=== PATIENT | male | born 1960 | race Caucasian/White ===

== ENCOUNTER 2020-05-11 03:29 | Emergency (ER) | payer MEDICAID, MEDICARE ==
[~2020-05-11] VITALS: Ht 167.6 cm; Wt 63.6 kg
[~2020-05-11 03:29] MED LIST: ASPI-515 PO; ATOR40TA78 PO; CAPT12.52 PO; METO25TA91 PO; TICA90TA PO
[2020-05-11] MEDS ORDERED: SODIUM CHLORIDE FLUSH 10ML SYR IVF ONE (04:00)
--- NOTE | 2020-05-11 04:05 | NUR ---
PT BIB EMS. PT STATES RUNNING OUT OF LASIX 2 DAYS AGO, LEGS SWELLING AND HAVING SOME SOB, CHEST PAIN, DIFFICULTY SLEEPING. PT RESTLESS IN BED, YELLING AT ERP STATING "[facility] DIDNT DO ANYTHING, THEY WOULDNT EVEN LET ME PUT ON OXYGEN BECAUSE MY MONITORS SAID IM FINE, WHATEVER THAT MEANS". PT PLACED ON ALL MONITORS, EKG DONE, CXR TAKEN, IV ATTEMPT WITH LABS AT BEDSIDE
[2020-05-11 04:45] LABS: ALANINE AMINOTRANSFERASE 25 U/L (12-78); ALBUMIN 2.8 g/dL (3.4-5.0); ANION GAP 8 mmol/L (5-15); CALCIUM 8.6 mg/dL (8.5-10.1); CHLORIDE 102 mmol/L (98-107); CREATININE 1.45 mg/dL (0.7-1.3)
[2020-05-11 04:49] LABS: ALKALINE PHOSPHATASE 115 U/L (45-117); BILIRUBIN,TOTAL 3.8 mg/dL (0.2-1.0); TOTAL PROTEIN 6.4 g/dL (6.4-8.2); TROPONIN I < 0.015 ng/mL (0.000-0.045)
[2020-05-11] MEDS ORDERED: FUROSEMIDE 40 MG/4 ML IV ONE (05:00)
[2020-05-11] MEDS ORDERED: FUROSEMIDE 20 MG/2 ML ONE (05:05)
[2020-05-11 05:08] LABS: BASOPHILS % (AUTO) 2 % (0-1); EOSINOPHILS % (AUTO) 2 % (1-7); LYMPHOCYTES % (AUTO) 24 % (22-44); MEAN CORPUSCULAR HEMOGLOBIN 28.3 pg (27.5-34.5); MEAN CORPUSCULAR HGB CONC 32.5 g/dL (33.2-36.2); MONOCYTES % (AUTO) 16 % (2-9); NEUTROPHILS % (AUTO) 56 % (42-75); PLATELET COUNT 231 x10^3/uL (130-400); RED BLOOD COUNT 3.88 x10^6/uL (4.38-5.82); RED CELL DISTRIBUTION WIDTH 18.2 % (9.4-14.8)
[2020-05-11 05:18] LABS: MD NO
[2020-05-11 06:49] VITALS: BP 108/84
== END 2020-05-11 06:55 | disposition home or self-care (01) ==
LOC: ED 06:53
DX: R07.2 Precordial pain (principal); R06.00 Dyspnea, unspecified; I50.9 Heart failure, unspecified; N17.9 Acute kidney failure, unspecified; Z76.0 Encounter for issue of repeat prescription; I25.2 Old myocardial infarction; Z87.891 Personal history of nicotine dependence
CPT/HCPCS: 36415; 71045; 80053; 83880; 84484; 85025; 93005; 96374; 99285; J1940

== ENCOUNTER 2020-05-13 09:46 | Emergency (ER) | payer MEDICARE ==
[~2020-05-13] VITALS: Ht 167.6 cm; Wt 63.6 kg
[2020-05-13] MEDS ORDERED: SODIUM CHLORIDE FLUSH 10ML SYR IVF ONE (10:00)
[2020-05-13] MEDS ORDERED: FUROSEMIDE 40 MG/4 ML IVPush ONE (10:00)
[2020-05-13] MEDS ORDERED: FUROSEMIDE 20 MG/2 ML ONE (10:09)
[2020-05-13 10:34] LABS: BASOPHILS % (AUTO) 2 % (0-1); EOSINOPHILS % (AUTO) 0 % (1-7); LYMPHOCYTES % (AUTO) 19 % (22-44); MEAN CORPUSCULAR HEMOGLOBIN 27.8 pg (27.5-34.5); MEAN CORPUSCULAR HGB CONC 31.6 g/dL (33.2-36.2); MEAN PLATELET VOLUME 9.6 fL (7.4-10.4); MONOCYTES % (AUTO) 13 % (2-9); NEUTROPHILS % (AUTO) 66 % (42-75); PLATELET COUNT 273 x10^3/uL (130-400); RED BLOOD COUNT 4.44 x10^6/uL (4.38-5.82); RED CELL DISTRIBUTION WIDTH 19.1 % (9.4-14.8)
[2020-05-13 10:39] LABS: MD NO
[2020-05-13 10:42] LABS: ALANINE AMINOTRANSFERASE 32 U/L (12-78); ANION GAP 10 mmol/L (5-15); CALCIUM 8.6 mg/dL (8.5-10.1); CHLORIDE 102 mmol/L (98-107); CREATININE 1.95 mg/dL (0.7-1.3)
--- NOTE | 2020-05-13 10:43 | NUR ---
PT HAVING INCREASED URINARY OUTPUT AFTER LASIX DOSE.
[2020-05-13 10:46] LABS: ALKALINE PHOSPHATASE 145 U/L (45-117); BILIRUBIN,TOTAL 4.6 mg/dL (0.2-1.0); TROPONIN I < 0.015 ng/mL (0.000-0.045)
--- NOTE | 2020-05-13 10:46 | NUR ---
[facility] called and informed of STAT ECHO. State they will come down [place] and perform [facility].
[2020-05-13 10:52] LABS: AMPHETAMINE SCREEN, URINE Negative (Negative); BARBITURATE SCREEN, URINE Negative (Negative); BENZODIAZEPINE SCREEN, URINE Negative (Negative); CANNABINOID SCREEN, URINE Negative (Negative); COCAINE SCREEN, URINE Negative (Negative); METHADONE SCREEN, URINE Negative (Negative); OPIATE SCREEN, URINE Negative (Negative)
[2020-05-13 11:04] LABS: FREE T4 (FREE THYROXINE) 1.91 ng/dL (0.76-1.46)
[2020-05-13 14:04] VITALS: BP 102/71
== END 2020-05-13 14:26 | disposition home or self-care (01) ==
LOC: ED 09:58
DX: I50.814 Right heart failure due to left heart failure (principal); R06.00 Dyspnea, unspecified; R07.89 Other chest pain; M79.89 Other specified soft tissue disorders; I49.3 Ventricular premature depolarization; I25.2 Old myocardial infarction; I50.9 Heart failure, unspecified; E78.5 Hyperlipidemia, unspecified
CPT/HCPCS: 36415; 71045; 80053; 80307; 83880; 84439; 84443; 84484; 85025; 93005; 93306; 96374; 99285; J1940

== ENCOUNTER 2020-05-15 01:01 | Emergency (ER) | payer MEDICARE ==
[~2020-05-15] VITALS: Ht 167.6 cm; Wt 62.0 kg
[2020-05-15 01:11] VITALS: BP 100/70
[2020-05-15 01:24] LABS: ANION GAP 9 mmol/L (5-15); CALCIUM 8.5 mg/dL (8.5-10.1); CHLORIDE 101 mmol/L (98-107)
[2020-05-15 01:26] LABS: ALANINE AMINOTRANSFERASE 44 U/L (12-78); ALKALINE PHOSPHATASE 153 U/L (45-117); BASOPHILS % (AUTO) 2 % (0-1); BILIRUBIN,TOTAL 4.2 mg/dL (0.2-1.0); CREATININE 1.94 mg/dL (0.7-1.3); EOSINOPHILS % (AUTO) 1 % (1-7); LYMPHOCYTES % (AUTO) 27 % (22-44); MEAN CORPUSCULAR HEMOGLOBIN 27.9 pg (27.5-34.5); MEAN CORPUSCULAR HGB CONC 31.2 g/dL (33.2-36.2); MEAN PLATELET VOLUME 9.7 fL (7.4-10.4); MONOCYTES % (AUTO) 18 % (2-9); NEUTROPHILS % (AUTO) 53 % (42-75); PLATELET COUNT 288 x10^3/uL (130-400); RED BLOOD COUNT 4.26 x10^6/uL (4.38-5.82); RED CELL DISTRIBUTION WIDTH 19.3 % (9.4-14.8); TOTAL PROTEIN 6.9 g/dL (6.4-8.2); TROPONIN I < 0.015 ng/mL (0.000-0.045)
[2020-05-15 01:30] LABS: MD NO
--- NOTE | 2020-05-15 02:03 | NUR ---
AT BEDSIDE. AIDET PROVIDED TO PT.
== END 2020-05-15 02:25 | disposition home or self-care (01) ==
LOC: ED 02:06
DX: I12.9 Hypertensive chronic kidney disease with stage 1 through stage 4 chronic kidney disease, or unspecified chronic kidney disease (principal); I50.31 Acute diastolic (congestive) heart failure; K59.00 Constipation, unspecified; R60.0 Localized edema; I49.3 Ventricular premature depolarization; I25.2 Old myocardial infarction; E78.5 Hyperlipidemia, unspecified; Z87.891 Personal history of nicotine dependence
CPT/HCPCS: 36415; 80053; 80307; 84484; 85025; 93005; 99284

== ENCOUNTER 2020-05-23 16:29 | Emergency (ER) | payer MEDICARE ==
[~2020-05-23] VITALS: Ht 165.1 cm; Wt 68.5 kg
[2020-05-23 17:04] VITALS: BP 103/63
--- NOTE | 2020-05-23 17:06 | NUR ---
PT A&OX4, RESP EVEN & UNLABORED, SPEECH CLEAR. ABLE TO SPEAK IN LOUD VOICE, CLEARLY. SKIN WNL. PT STATES "I'M HAVING HEART FAILURE" "I TWICE IN [place] LAST WEEK AND WAS IN A COMA" "I HAVE 2 STENTS".
--- NOTE | 2020-05-23 17:10 | NUR ---
CXR AT BS
[2020-05-23 17:36] LABS: BASOPHILS % (AUTO) 2 % (0-1); EOSINOPHILS % (AUTO) 1 % (1-7); LYMPHOCYTES % (AUTO) 13 % (22-44); MEAN CORPUSCULAR HEMOGLOBIN 27.2 pg (27.5-34.5); MEAN CORPUSCULAR HGB CONC 31.9 g/dL (33.2-36.2); MEAN PLATELET VOLUME 9.7 fL (7.4-10.4); MONOCYTES % (AUTO) 11 % (2-9); NEUTROPHILS % (AUTO) 73 % (42-75); PLATELET COUNT 170 x10^3/uL (130-400); RED BLOOD COUNT 4.08 x10^6/uL (4.38-5.82); RED CELL DISTRIBUTION WIDTH 18.1 % (9.4-14.8)
[2020-05-23 17:37] LABS: MD NO
--- NOTE | 2020-05-23 17:41 | NUR ---
PT ARGUMENTATIVE. UNWILLING TO PROVIDE MEDICATION NAMES. REQUESTING OXYGEN. INFORMED PT HIS O2 SAT 100% ON ROOM AIR. PT REQUESTING LASIX. STATES HE TAKES LASIX. STATING "YOU GUYS PUT A STENT IN ME AND IT FAILED."
[2020-05-23 17:44] LABS: ALANINE AMINOTRANSFERASE 24 U/L (12-78); ALBUMIN 2.9 g/dL (3.4-5.0); ANION GAP 6 mmol/L (5-15); CALCIUM 8.1 mg/dL (8.5-10.1); CHLORIDE 100 mmol/L (98-107); CREATININE 1.38 mg/dL (0.7-1.3)
[2020-05-23 17:48] LABS: ALKALINE PHOSPHATASE 111 U/L (45-117); BILIRUBIN,TOTAL 2.7 mg/dL (0.2-1.0); TOTAL PROTEIN 6.9 g/dL (6.4-8.2); TROPONIN I < 0.015 ng/mL (0.000-0.045)
--- NOTE | 2020-05-23 18:05 | NUR ---
PT REPORT TO RC DENNISON RN. PT CARE TRANSFERRED. PT WATCHING TV
--- NOTE | 2020-05-23 18:50 | NUR ---
PT REPORT FROM CORRINA DENNISON. PT CARE TO BE RESUMED.
--- NOTE | 2020-05-23 18:52 | NUR ---
PT AMBULATORY TO & FROM [facility] W/OUT INCIDENT: GAIT STEADY.
--- NOTE | 2020-05-23 18:53 | NUR ---
ADDITIONAL BLANKETS PROVIDED, PER PT REQUEST
--- NOTE | 2020-05-23 19:27 | NUR ---
DR MERCADO AT
[2020-05-23] MEDS ORDERED: FUROSEMIDE 40 MG/4 ML IV ONE (20:00)
--- NOTE | 2020-05-23 20:12 | NUR ---
PT FULLY DRESSED, STANDING IN ROOM DOORWAY, ASKING ABOUT HIS LASIX. INFORMED PT THAT HE'S NEXT IN LINE. PT THEN RETURNED TO ROOM AND PLOPPED ONTO [facility] [facility].
[2020-05-23] MEDS ORDERED: FUROSEMIDE 40 MG/4 ML ONE (20:18)
== END 2020-05-23 20:36 | disposition home or self-care (01) ==
LOC: ED 17:30
DX: R06.00 Dyspnea, unspecified (principal); I50.9 Heart failure, unspecified; I25.2 Old myocardial infarction; E78.5 Hyperlipidemia, unspecified; R06.02 Shortness of breath
CPT/HCPCS: 36415; 71045; 80053; 83880; 84484; 85025; 93005; 99285

== ENCOUNTER 2020-06-08 07:37 | Emergency (ER) | payer MEDICARE ==
[~2020-06-08] VITALS: Ht 165.1 cm; Wt 74.0 kg
--- NOTE | 2020-06-08 07:37 | NUR ---
INITIAL PT CONTACT. BIBA C/O SYNCOPE, CHEST PAIN, TOOTH PAIN AND LEFT ARM PAIN/NUMBNESS. PT STATES "I FELL THIS AM, MUSTVE PASSED OUT AND HIT MY HEAD, I REMEBER EVERYTHING AND NOW MY TOOTH HURTS." PT UPRIGHT ON FAUSTINA, HEIKE, VSS. PT PROVIDED BLANKET. CONTINUOUS PULSE OX AND PLANT ACCOUNTANT IN PLACE. ERP AT BEDSIDE.
--- NOTE | 2020-06-08 07:49 | NUR ---
PT CONTINUALLY STATES "I REALLY DONT WANT AN IV, LAST TIME I HAD ONE THEY DIDNT EVEN USE IT, SO PLEASE WAIT ON THAT." ERP AWARE.
[2020-06-08] MEDS ORDERED: SODIUM CHLORIDE FLUSH 10ML SYR IVF ONE (08:00)
[2020-06-08] MEDS ORDERED: POTA20TA14 PO (08:05)
[2020-06-08] MEDS ORDERED: APIX5TAB PO (08:05)
[2020-06-08] MEDS ORDERED: FURO-93 PO (08:05)
--- NOTE | 2020-06-08 08:07 | NUR ---
PT TO IMAGING
[2020-06-08 08:17] LABS: BASOPHILS % (AUTO) 2 % (0-1); EOSINOPHILS % (AUTO) 2 % (1-7); LYMPHOCYTES % (AUTO) 12 % (22-44); MEAN CORPUSCULAR HEMOGLOBIN 27.1 pg (27.5-34.5); MEAN PLATELET VOLUME 9.2 fL (7.4-10.4); MONOCYTES % (AUTO) 10 % (2-9); NEUTROPHILS % (AUTO) 74 % (42-75); PLATELET COUNT 209 x10^3/uL (130-400); RED BLOOD COUNT 4.33 x10^6/uL (4.38-5.82)
[2020-06-08 08:19] LABS: MD NO
[2020-06-08 08:30] LABS: ALANINE AMINOTRANSFERASE 22 U/L (12-78); ALBUMIN 3.3 g/dL (3.4-5.0); ANION GAP 8 mmol/L (5-15); CALCIUM 8.4 mg/dL (8.5-10.1); CHLORIDE 105 mmol/L (98-107); CREATININE 1.45 mg/dL (0.7-1.3)
[2020-06-08 08:35] LABS: ALKALINE PHOSPHATASE 120 U/L (45-117); BILIRUBIN,TOTAL 3.3 mg/dL (0.2-1.0); TOTAL PROTEIN 7.5 g/dL (6.4-8.2); TROPONIN I < 0.015 ng/mL (0.000-0.045)
[2020-06-08 09:00] VITALS: BP 116/85
--- NOTE | 2020-06-08 09:00 | NUR ---
PT UPRIGHT ON GURNEY, NAD, VSS. PT REPORTS "TERRIBLE MOUTH PAIN", ERP NOTIFIED. NEW URINAL PROVIDED. CONTINUOUS PULSE OX AND BUS TRANSPORTATION MANAGER IN PLACE. NO ADDITIONAL NEEDS AT THIS TIME.
--- NOTE | 2020-06-08 09:26 | NUR ---
ERP AT BEDSIDE
[2020-06-08] MEDS ORDERED: ACETAMINOPHEN 500 MG TABLET PO ONE (09:30)
--- NOTE | 2020-06-08 09:53 | NUR ---
Patient given discharge instructions and then proceeded to yell "fuck you all, stupid place" when told he could get a bus pass. Patient ambulatory with steady gait. Refused repeat vitals and medication. pt walked to waiting room. Addendum: 06/08/20 at 0956 by MINGALMARCELO Patient given discharge instructions and then proceeded to yell "fuck you all, stupid place" when told he could get a bus pass. Pt threw d/c instructions on floor and walked out of room. Patient ambulatory with steady gait. Refused repeat vitals and medication. pt walked to waiting room.
== END 2020-06-08 09:58 | disposition home or self-care (01) ==
LOC: ED 08:41
DX: S00.93XA Contusion of unspecified part of head, initial encounter (principal); S00.83XA Contusion of other part of head, initial encounter; R55 Syncope and collapse; R07.89 Other chest pain; R11.0 Nausea; I50.9 Heart failure, unspecified; I25.2 Old myocardial infarction; E78.5 Hyperlipidemia, unspecified; X58.XXXA Exposure to other specified factors, initial encounter; Y93.89 Activity, other specified; Y92.89 Other specified places as the place of occurrence of the external cause; Y99.8 Other external cause status
CPT/HCPCS: 36415; 70450; 70486; 71045; 72125; 80053; 83880; 84484; 85025; 93005; 99285

== ENCOUNTER 2021-02-15 17:36 | Emergency (ER) | payer MEDICARE ==
[~2021-02-15] VITALS: Ht 166.4 cm; Wt 62.5 kg
[~2021-02-15 17:36] MED LIST changes: +APIX5TAB PO; -ASPI-515 PO; +ASPI-963 PO; +FURO-93 PO; +POTA20TA14 PO
--- NOTE | 2021-02-15 17:40 | NUR ---
pt BIB [facility] with multiple c/o. pt c/o CP x4 days, reports that he has pain in the L side of his neck and head as well as abdominal pain today. pt states that he had a syncopal episode 4 days ago. pt denies nausea, no vomiting. pale warm and dry. intermittent mild SOB with dry cough pt is in A-fib with hx of same. scheduled for ablation at [facility] later this month [facility] without difficulty. no family at bedside
--- NOTE | 2021-02-15 17:59 | NUR ---
Dr Arias at bedside for eval
[2021-02-15] MEDS ORDERED: DIGO125T85 PO (18:02)
[2021-02-15] MEDS ORDERED: WARF3TAB52 PO (18:02)
[2021-02-15] MEDS ORDERED: CLOP75TA PO (18:02)
[2021-02-15] MEDS ORDERED: ATOR-2 PO (18:02)
--- NOTE | 2021-02-15 18:44 | NUR ---
lab at bedside to draw
[2021-02-15 19:00] VITALS: BP 107/75
[2021-02-15 19:01] LABS: BASOPHILS % (AUTO) 1 % (0-1); EOSINOPHILS % (AUTO) 6 % (1-7); LYMPHOCYTES % (AUTO) 13 % (22-44); MEAN CORPUSCULAR HEMOGLOBIN 30.9 pg (27.5-34.5); MEAN CORPUSCULAR HGB CONC 34.5 g/dL (33.2-36.2); MEAN PLATELET VOLUME 9.5 fL (7.4-10.4); MONOCYTES % (AUTO) 10 % (2-9); NEUTROPHILS % (AUTO) 71 % (42-75); PLATELET COUNT 159 x10^3/uL (130-400); RED BLOOD COUNT 4.28 x10^6/uL (4.38-5.82); RED CELL DISTRIBUTION WIDTH 14.9 % (9.4-14.8)
[2021-02-15 19:05] LABS: ALANINE AMINOTRANSFERASE 44 U/L (12-78); ALBUMIN 3.4 g/dL (3.4-5.0); ANION GAP 10 mmol/L (5-15); CALCIUM 8.8 mg/dL (8.5-10.1); CHLORIDE 103 mmol/L (98-107); CREATININE 1.21 mg/dL (0.7-1.3)
[2021-02-15 19:07] LABS: INTERNATIONAL NORMALIZED RATIO 1.7 (0.93-1.1); PROTHROMBIN TIME 17.7 Seconds (9.6-11.5)
[2021-02-15 19:10] LABS: ALKALINE PHOSPHATASE 75 U/L (45-117); BILIRUBIN,TOTAL 2.5 mg/dL (0.2-1.0); TOTAL PROTEIN 7.2 g/dL (6.4-8.2); TROPONIN I < 0.015 ng/mL (0.000-0.045)
[2021-02-15 19:14] LABS: MICROSCOPIC NOT IND
--- NOTE | 2021-02-15 19:31 | NUR ---
chart up for MD recheck
--- NOTE | 2021-02-15 19:40 | NUR ---
pt given warm blankets and lights dimmed for comfot. pt has had to be reminded numerous times to keep his mask in place. pt uncooperative with wearing mask. awaiting recheck
--- NOTE | 2021-02-15 20:05 | NUR ---
at bedside for recheck
== END 2021-02-15 21:15 | disposition left against medical advice (07) ==
LOC: ED 18:00
DX: R07.2 Precordial pain (principal); M26.602 Left temporomandibular joint disorder, unspecified; R55 Syncope and collapse; R00.0 Tachycardia, unspecified; I48.91 Unspecified atrial fibrillation; I25.2 Old myocardial infarction; E78.5 Hyperlipidemia, unspecified; Z98.61 Coronary angioplasty status; Z87.891 Personal history of nicotine dependence
CPT/HCPCS: 36415; 71045; 80053; 81003; 84484; 85025; 85610; 93005; 99285